=== PATIENT | male | born 1975 | race Caucasian/White ===

== ENCOUNTER 2018-12-21 12:02 | Emergency (ER) | payer SELFPAY ==
[~2018-12-21] VITALS: Ht 167.6 cm; Wt 65.9 kg
[2018-12-21 12:10] VITALS: Ht 167.6 cm; Wt 65.9 kg
[2018-12-21 12:32] LABS: BASOPHILS 1.3 % (0-2); EOSINOPHILS 8.5 % (0-7); HEMATOCRIT 42.7 % (42.0-54.0); HEMOGLOBIN 14.8 g/dL (13.5-17.5); LYMPHOCYTES 34.6 % (15-50); MCH 32.2 pg (26.0-34.0); MCHC 34.7 g/dL (31.0-37.0); MEAN PLATELET VOLUME 9.5 fL (7.4-10.4); MONOCYTES 20.1 % (2-11); NEUTROPHILS 35.5 % (40-80); PLATELET COUNT 325 10x3/uL (130-400); RBC 4.59 10x6/uL (4.20-6.10); RDW 14.2 % (11.5-14.5)
[2018-12-21 12:42] LABS: INR 1.06 (0.85-1.17); PROTIME 13.3 SECONDS (11.6-15.0)
[2018-12-21 12:47] LABS: ALBUMIN 3.3 g/dL (3.4-5.0); ALKALINE PHOSPHATASE 84 U/L (46-116); ALT (SGPT) 78 U/L (10-68); BILIRUBIN - TOTAL 0.56 mg/dL (0.2-1.3); CALC OSMOLALITY 280 mosm/kg (275-300); CALCIUM 8.3 mg/dL (8.5-10.1); CARBON DIOXIDE 27.5 mmol/L (21.0-32.0); CHLORIDE - SERUM 102 mmol/L (98-107); CREATININE - SERUM 0.9 mg/dL (0.6-1.3); GLUCOSE 132 mg/dL (74-106); POTASSIUM - SERUM 3.7 mmol/L (3.5-5.1); PROTEIN - SERUM 7.6 g/dL (6.4-8.2); SODIUM 139 mmol/L (136-145); UREA NITROGEN 16 mg/dL (7-18); eGFR NON AFRICAN AMERICAN > 90 mL/min (90-120)
[2018-12-21 12:58] LABS: CKMB 1.9 U/L (0.0-3.6); CREATINE KINASE 150 UL (21-232); MAGNESIUM - SERUM 2.1 mg/dL (1.8-2.4)
[2018-12-21 13:00] LABS: TROPONIN-I < 0.017 ng/mL (0.000-0.060)
[2018-12-21] MEDS ORDERED: CLEOCIN HCL300 MG PO (14:17)
[2018-12-21 15:11] VITALS: BP 125/86
[2018-12-23 18:09] LABS: CHLAMYDIA TRACHOMATIS, NAA Negative (Negative)
== END 2018-12-21 15:11 | disposition home or self-care (01) ==
LOC: D.ER 12:02
PROVIDERS: Family Medicine
DX: S99.922A Unspecified injury of left foot, initial encounter (principal); W40.9XXA Explosion of unspecified explosive materials, initial encounter; Y93.89 Activity, other specified; Y92.019 Unspecified place in single-family (private) house as the place of occurrence of the external cause; F22 Delusional disorders; Z72.51 High risk heterosexual behavior; F19.11 Other psychoactive substance abuse, in remission; L98.1 Factitial dermatitis; L03.032 Cellulitis of left toe

== ENCOUNTER 2019-01-19 09:49 | Emergency (ER) | payer MEDICAID ==
[~2019-01-19] VITALS: Ht 167.6 cm; Wt 65.9 kg
[~2019-01-19 09:49] MED LIST: CLEOCIN HCL300 MG PO
[2019-01-19 10:05] VITALS: BP 118/71; Ht 167.6 cm; Wt 65.9 kg
[2019-01-19] MEDS ORDERED: CLEOCIN HCL300 MG PO (12:44)
[2019-01-19] MEDS ORDERED: KEFLEX500 MG PO (12:44)
== END 2019-01-19 12:55 | disposition home or self-care (01) ==
LOC: D.ER 09:49
DX: L03.114 Cellulitis of left upper limb (principal); L03.113 Cellulitis of right upper limb; L02.512 Cutaneous abscess of left hand; L02.511 Cutaneous abscess of right hand; R05 Cough